=== PATIENT | female | born 1965 | race Caucasian/White ===

== ENCOUNTER 2024-10-19 18:18 | Observation (INO) ==
[2024-10-19] MEDS: LACTATED RINGER'S 1,000 ML IV ONE (18:57)
[2024-10-19] MEDS ORDERED: LACTATED RINGER'S 1,000 ML ONE (18:57)
[2024-10-19 19:07] LABS: Basophils #(Absolute) Auto 0.1 (0.0-0.1); Basophils%(Percent) Auto 0.6 (0.1-0.85); Eosinophils#(Absolute)Auto 0.1 (0.0-0.2); Eosinophils%(Percent) Auto 0.7 % (0.4-2.8); Granulocytes % - Auto 76.8 % (47.8-71.3); Granulocytes#(Absolute)- Auto 7.1 (2.3-6.0); Mean Corpuscular Volume 76.5 fl (81.0-93.7); Monocytes #(Absolute)- Auto 0.5 (1.1-3.1); Monocytes %(Percent)- Auto 5.1 % (3.6-9.8); Platelet Count 211 K/uL (152-353); White Blood Count 9.3 K/uL (4.3-9.3)
[2024-10-19 19:12] LABS: Potassium 3.6 mmol/L (3.6-5.2)
[2024-10-19 19:14] LABS: Urine Appearance CLEAR (CLEAR); Urine Blood NEGATIVE (NEG - TRACE); Urine Color YELLOW (STRAW/YELL.); Urine Urobilinogen Normal (NORMAL)
[2024-10-19 19:23] LABS: Base Excess ABG -5.6 mmo1/L (-2-2); Oxygen Saturation ABG 95 % (92-100); PCO2 ABG 39 mmHg (35-45); PO2 ABG 83 mmHg (60-100); pH ABG 7.32 (7.35-7.45)
[2024-10-19] MEDS ORDERED: MORPHINE SULFATE 4 MG/ML CARTRIDGE IV PRN (22:45)
[2024-10-19] MEDS ORDERED: ACETAMINOPHEN 500 MG TABLET PO PRN (22:45)
--- NOTE | 2024-10-19 22:50 | Emergency Department Note ---
HPI - Nausea/Vomiting/Diarrhea General Chief complaint: Nausea/Vomiting/Diarrhea Stated complaint: Vomiting Time Seen by Provider: 10/19/24 18:43 Source: EMS Mode of arrival: ambulance History of Present Illness HPI Narrative: 59 yo female is reported to have been transported to the ED due to a low blood sugar reading on her dexacom, and persistent nausea, vomiting, and diarrhea per EMS. Patient was given Phenergan prior to arrival via EMS and appears extremely lethargic, is unable to answer questions, and is completely altered upon entry to room Secondary to patient's history I will request an immediate CT scan of her head without contrast. Related Data Previous Rx's Medication Instructions Recorded dicyclomine 20 mg tablet 20 mg PO QID PRN abdominal p ain 12/04/23 #20 tabs metronidazole 250 mg tablet 250 mg PO TID Giardia 7 da ys #21 12/04/23 tabs ondansetron 4 mg disintegrating 4 mg PO Q6H PRN nausea and 12/04/23 tablet vomiting #15 tabs Allergies Allergy/AdvReac Type Severity Reaction Status Date / Time No Known Drug Allergies Allergy Verified 10/19/24 18:26 Review of Systems Status of ROS unobtainable due to mental status (patient is currently unable to provide the [employer] with any useful information. ) PFSH PFSH Medical History CAD (coronary artery disease) GERD (gastroesophageal reflux disease) CHF (congestive heart failure) Stroke Hypocholesterolemia Diabetes mellitus Atrial fibrillation Hypertension Surgical History Hx of hernia repair History of hysterectomy Hx of appendectomy Hx of cholecystectomy Social History Smoking status: never smoker Within the past year, how often did you have a drink containing alcohol: never Within the past year, how often did you have six or more drinks on one occasion: never Score interpretation: A score less than 3 is consistent with normal alcohol consumption. Non-prescribed substance use: denies use Exam Exam: 59 yo female presents well nourished but poorly hydrated with poor skin turgor and an extremely dry oral cavity. Patient rouses to deep stimulation, however, is unable to answer question or purposefully move extremities. Constitutional: no apparent distress Vital Signs - 24 hr 10/19/24 18:22 Temperature 97.8 F Pulse Rate 75 Respiratory Rate 20 Blood Pressure 128/64 Pulse Oximetry 97 Oxygen Delivery Me thod Room Air Extremely drowsy, unsure if secondary to medication admission prior to arrival or a CVA HENMT: normocephalic, head/scalp atraumatic, hearing grossly normal bilaterally, external ears normal, TMs normal bilaterally and external nose normal extremely dry oral mucous membranes Eyes: PERRL Neck/C-Spine: visual inspection normal, trachea midline and cervical full ROM noted Lymph: no lymphadenopathy noted Chest: inspection of chest normal Respiratory: breath sounds equal bilaterally, normal respiratory effort, clear to auscultation bilaterally, no wheezes and no rales Cardiovascular: normal heart rate noted, regular rhythm noted, no gallop, no rub, no murmur and no JVD Gastrointestinal: abdomen normal to inspection, nontender to palpation, nontender to percussion and nondistended hyperactive bowel sounds, Genitourinary: no CVA tenderness and bladder normal to palpation Back/Pelvis: spine normal to inspection Extremities: normal to inspection patient is unable to provide purposeful movement when requested. Neurology: drowsy, arousable to deep stim, Skin: skin color normal Course Course Hospital Course: [facility] ekg cxr CT scan head CTA of head/neck IV fluids IV medications Reevaluation(s) Reevaluation #1: patient has become much more alert post straight cath for urine per nursing staff. Patient is able to converse with provider and answer simple questions. No acute signs or symptoms of CVA at this time. Time: 20:00 Reevaluation #2: I have explained the CT scan findings and discussed them with the patient instructing her we will need to do CTA of the head and neck to rule out LVO, and will most likely admit her to the floor for observation, monitoring, and more IV fluids tonight, and a follow up MRI tomorrow. Time: 21:00 Vital Signs Vital signs: Vital Signs Temperature 97.8 F 10/19/24 18:22 Pulse Rate 75 10/19/24 18:22 Respiratory Rate 20 10/19/24 18:22 Blood Pressure 128/64 10/19/24 18:22 Pulse Oximetry 97 10/19/24 18:22 Oxygen Delivery Method Room Air 10/19/24 18:22 Temperature 97.8 F 10/19/24 18:22 Pulse Rate 75 10/19/24 18:22 Respiratory Rate 20 10/19/24 18:22 Blood Pressure 128/64 10/19/24 18:22 Pulse Oximetry 97 10/19/24 18:22 Oxygen Delivery Method Room Air 10/19/24 18:22 Discharge Plan Discharge Patient Disposition: Admitted As Observation Condition: Stable Clinical Impression: Gastroenteritis, Acute alteration in mental status, Hypoglycemia, Carotid artery stenosis Time of Disposition: 22:45 Critical Care Time Critical Care Time Total Critical Care Time: 120
[2024-10-19] MEDS: ONDANSETRON HCL/PF 4 MG/2 ML VIAL INJ PRN (23:38)
[2024-10-19] MEDS: 0.9 % SODIUM CHLORIDE 1000 ML 1,000 ML IV SCH (23:38)
[2024-10-20 05:15] LABS: Basophils%(Percent) Auto 0.3 (0.1-0.85); Eosinophils#(Absolute)Auto 0.1 (0.0-0.2); Eosinophils%(Percent) Auto 1.1 % (0.4-2.8); Granulocytes % - Auto 56.1 % (47.8-71.3); Mean Corpuscular Volume 76.1 fl (81.0-93.7); Monocytes #(Absolute)- Auto 0.5 (1.1-3.1); Monocytes %(Percent)- Auto 7.6 % (3.6-9.8); Platelet Count 217 K/uL (152-353); White Blood Count 7.1 K/uL (4.3-9.3)
[2024-10-20] MEDS: IBUPROFEN 800 MG TABLET PO PRN (05:37)
[2024-10-20 05:41] LABS: Potassium 3.4 mmol/L (3.6-5.2)
[2024-10-20] MEDS ORDERED: POTASSIUM CHLORIDE 20 MEQ TAB.ER.PRT PO ONE (09:00)
[2024-10-20] MEDS: PANTOPRAZOLE SODIUM 40 MG TABLET.DR PO SCH (09:40)
[2024-10-20] MEDS: POTASSIUM CHLORIDE 20 MEQ TAB.ER.PRT PO ONE (09:40)
--- NOTE | 2024-10-20 11:48 | Short Stay Summary ---
H&P: HPI History of Present Illness Chief complaint: AMS, hypoglycemic episode, nausea, vomiting, diarr Narrative: 59 yo female is reported to have been transported to the ED due to a low blood sugar reading on her dexacom, and persistent nausea, vomiting, and diarrhea per EMS. Patient was given Phenergan prior to arrival via EMS and appears extremely lethargic, is unable to answer questions, and is completely altered upon entry to room Secondary to patient's history I will request an immediate CT scan of he r head without contrast. Patient more alert on exam today and interview is able to say that she has currently lost 80 pounds since she started the Mounjaro which she takes sporadically last time she took it was last week when she was increased to 10 mg. Patient states she has passed out last Thursday has almost fallen or fallen several times since then and this morning when she has not been able to eat and drink for the last 2 days she continued take her glipizide because her son does her medicine boxes and she is not told him about the poor eating and the nausea vomiting. No further nausea or vomiting or diarrhea since she has reached the floor in the last 12 hours. Left sided weakness upper and lower and learning to walk again and working on her Memory. 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 ) Constitutional Reports: change in weight (LOST 80 POUNDS), fatigue and malaise; Denies: fever or chills Eyes Denies: change in vision, blurry vision, eye discomfort or eye discharge Ears, nose, mouth, and throat Reports: throat pain; Denies: neck pain, throat swelling, difficulty swallowing, hoarseness, swelling of lips/tongue, ear pain or nasal congestion Cardiovascular Denies: chest pain, palpitations, edema, swelling of feet/ankles or lightheadedness Respiratory Reports: shortness of breath; Denies: cough, wheezing, stridor, pain on inspiration or chest congestion Gastrointestinal Reports: abdominal pain (epigastric, see HPI), nausea, vomiting, heartburn, diarrhea and belching (foul smelling, like rotten eggs); Denies: constipation, difficulty swallowing, painful bowel movements or blood in stool Genitourinary Reports: urinary incontinence; Denies: painful urination, urinary frequency, urinary urgency or blood in urine Musculoskeletal Reports: back pain; Denies: neck pain, extremity pain, extremity swelling or limited range of motion Integumentary/Breast Denies: rash, itching, redness, skin pain or changes in skin color Neurological Reports: headache; Denies: numbness in extremities, weakness in extremities, lack of coordination, dizziness, slurred speech or difficulty communicating thoughts Psychiatric Reports: mood swings, irritability and memory loss; Denies: anxiety, panic attacks, change in sleep pattern, hopelessness, loss of interest, paranoia or difficulty concentrating Endocrine Reports: fatigue; Denies: excessive urination, excessive thirst, cold intolerance or excessive sweating Hematologic/Lymphatic Denies: easy bruising, easy bleeding or enlarged lymph nodes Allergic/Immunologic Denies: hives, throat swelling, tongue swelling or facial swelling PFSH [facility] Medical History (Updated 10/20/24 @ 11:56 by Kenyatta Best DO) Hyperbilirubinemia Fatty liver CAD (coronary artery disease) GERD (gastroesophageal reflux disease) CHF (congestive heart failure) Stroke Hypocholesterolemia Atrial fibrillation Hypertension Surgical History Hx of hernia repair History of hysterectomy Hx of appendectomy Hx of cholecystectomy Social History Smoking status: never smoker Within the past year, how often did you have a drink containing alcohol: never Within the past year, how often did you have six or more drinks on one occasion: never Score interpretation: A score less than 3 is consistent with normal alcohol consumption. Non-prescribed substance use: denies use Problems where you live: no known problems Highest level of school completed/degree received: high school Feel stressed/tense/nervous/anxious/difficulty sleeping: not at all (trust in the lord) Due to disability, difficulty making decisions: No Meds Home Medications and Allergies Home Medications Medication Instructions Recorded Confirmed Type dicyclomine 20 mg tablet 20 mg PO QID PRN abdominal p ain 12/04/23 10/20/24 Rx #20 tabs ondansetron 4 mg disintegrating 4 mg PO Q6H PRN nausea and 12/04/23 10/20/24 Rx tablet vomiting #15 tabs alprazolam 0.25 mg tablet 0.25 mg PO TID PRN anxiety 0 10/20/24 10/20/24 History apixaban 5 mg tablet (Eliquis) 5 mg PO BID 10/20/24 History atorvastatin 80 mg tablet 80 mg PO BEDTIME 10/20/24 History blood-glucose sensor (FreeStyle 10/20/24 10/20/24 His [employer] Jose 3 Plus Sensor device) dapagliflozin propanediol 10 mg 10 mg PO DAILY 5 10/20/24 History tablet duloxetine 60 mg capsule,delayed 60 mg PO DAILY 10/20/24 History release furosemide 40 mg tablet 40 mg PO DAILY PRN edema 05/0410/20/24 History gabapentin 600 mg tablet 600 mg PO BEDTIME 10/20/24 0 10/20/24 History pantoprazole 40 mg tablet,delayed 40 mg PO QAM 5 10/20/24 History release potassium chloride 20 mEq 20 meq PO DAILY PRN hypokale mely 10/20/24 10/20/24 History tablet,extended release(part/cryst) ranolazine 1,000 mg 1,000 mg PO Q12H 10/20/24 History tablet,extended release,12 hr tramadol 50 mg tablet 50 mg PO Q12H PRN pain 10/2010/20/24 History Allergies Allergy/AdvReac Type Severity Reaction Status Date / Time No Known Drug Allergies Allergy Verified 10/19/24 18:26 Exam Constitutional: abnormal general appearance (disheveled) and (chronically ill), no apparent distress, abnormal body habitus (obese) and limitations noted (physical limitations) (left sided weakness) Vital Signs - 24 hr 10/19/24 18:22 10/19/24 19:20 10/19/24 20:20 Temperature 97.8 F Pulse Rate 75 77 75 Pulse Rate [Bilate ral] Respiratory Rate 20 17 16 Blood Pressure 128/64 142/64 142/73 Blood Pressure [Ri ght Arm] Pulse Oximetry 97 97 96 Oxygen Delivery Me thod Room Air Room Air Room Air 10/19/24 22:20 10/19/24 22:55 10/19/24 23:05 Temperature 97.8 F Pulse Rate 72 72 Pulse Rate [Bilate ral] Respiratory Rate 17 17 Blood Pressure 147/71 147/71 Blood Pressure [Ri ght Arm] Pulse Oximetry 97 97 Oxygen Delivery Me thod Room Air 10/19/24 23:48 10/20/24 03:40 10/20/24 08:00 Temperature 97.7 F 97.9 F 98.1 F Pulse Rate Pulse Rate [Bilate ral] 82 73 81 Respiratory Rate 19 18 19 Blood Pressure Blood Pressure [Ri ght Arm] 110/61 105/53 93/45 Pulse Oximetry 99 98 95 Oxygen Delivery Me thod Room Air Room Air Room Air HENMT: normocephalic, head/scalp atraumatic, hearing grossly normal bilaterally, external ears normal, TMs abnormal and external nose normal extremely dry oral mucous membranes Eyes: PERRL, EOMs intact bilaterally, conjunctivae normal, scleral icterus noted, papilledema noted and periorbital findings normal Neck/C-Spine: visual inspection normal, trachea midline and cervical full ROM noted Lymph: no lymphadenopathy noted and no lymphedema noted Chest: inspection of chest normal and palpation of chest normal Respiratory: breath sounds unequal, normal respiratory effort, clear to auscultation bilaterally, no wheezes and no rales Cardiovascular: normal heart rate noted, regular rhythm noted, no gallop, no rub, no murmur and no JVD low BP Gastrointestinal: abdomen abnormal to inspection, abdomen soft to palpation, nontender to palpation, nontender to percussion, nondistended, abnormal bowel sounds noted (hypoactive bowel sounds), no masses, no pulsatile mass and no ascites hyperactive bowel sounds, Genitourinary: no CVA tenderness, bladder normal to palpation and external appearance normal Back/Pelvis: spine abnormal to inspection, no thoracic spine tenderness, no lumbar spine tenderness, thoracic spine ROM abnormal and lumbar spine ROM abnormal Extremities: abnormal to inspection, normal to palpation, no tenderness, abnormal ROM noted, no joint enlargement and no deformity patient is unable to provide purposeful movement when requested. Neurology: repack room worker II-XII intact, no movement abnormality noted, focal motor deficit noted, sensory deficit noted, deep tendon reflexes as noted:, gait abnormality noted, speech normal, coordination normal, no pronator drift noted and GCS normal drowsy, arousable to deep stim, Psychiatry: Mental Status Exam documented within this Exam's Psych section mental status grossly normal, oriented x3, thought process abnormality noted, cooperative, affect normal, psychomotor activity normal and memory abnormal Feel stressed/tense/nervous/anxious/difficulty sleeping: not at all (trust in the lord) Due to disability, difficulty making decisions: No Skin: skin color abnormal, no rash, no lesions, ecchymosis noted, no wounds, no lacerations, skin turgor abnormal Reports (tenting), no jaundice, no petechiae, no mottling, nails abnormality noted and no alopecia Assessment and Plan Assessment and Plan (1) Hypoglycemia associated with type 2 diabetes mellitus: Code(s): E11.649 - Type 2 diabetes mellitus with hypoglycemia without coma (2) CVA, old, ataxia: Code(s): I69.993 - Ataxia following unspecified cerebrovascular disease (3) Carotid stenosis, left: Code(s): I65.22 - Occlusion and stenosis of left carotid artery (4) Vertebrobasilar artery stenosis: Code(s): I65.1 - Occlusion and stenosis of basilar artery; I65.09 - Occlusion and stenosis of unspecified vertebral artery (5) GERD (gastroesophageal reflux disease): Qualifiers: Esophagitis presence: without esophagitis Qualified Code(s): K21.9 - Gastro-esophageal reflux disease without esophagitis Code(s): K21.9 - Gastro-esophageal reflux disease without esophagitis (6) CHF (congestive heart failure): Qualifiers: Heart failure type: combined systolic and diastolic Heart failure chronicity: chronic Qualified Code(s): I50.42 - Chronic combined systolic (congestive) and diastolic (congestive) heart failure Code(s): I50.9 - Heart failure, unspecified (7) Hypocholesterolemia: Code(s): E78.6 - Lipoprotein deficiency (8) Atrial fibrillation: Qualifiers: Atrial fibrillation type: paroxysmal Qualified Code(s): I48.0 - Paroxysmal atrial fibrillation Code(s): I48.91 - Unspecified atrial fibrillation (9) Hypertension: Qualifiers: Hypertension type: primary hypertension Qualified Code(s): I10 - Essential (primary) hypertension Code(s): I10 - Essential (primary) hypertension (10) Diabetes type 2, controlled: Qualifiers: 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 insulin use: with halfway use Diabetes mellitus complication status: with neurologic complications Diabetes mellitus complication detail: with polyneuropathy Qualified Code(s): E11.42 - Type 2 diabetes mellitus with diabetic polyneuropathy; Z79.4 - marine oil terminal superintendent (current) use of insulin Code(s): E11.9 - Type 2 diabetes mellitus without complications (11) Fatty liver: Code(s): K76.0 - Fatty (change of) liver, not elsewhere classified (12) Hyperbilirubinemia: Code(s): E80.6 - Other disorders of bilirubin metabolism (13) Acute dehydration: Code(s): E86.0 - Dehydration Plan IV hydration of normal saline at 125 an hour monitor blood sugars AC and at bedtime and as needed blood sugar monitoring with sliding scale insulin as needed Cardiac monitoring See if patient tolerates food and then add medications orally as needed Follow-up with your PCP to ensure GI medicine and vascular surgery and further testing for the carotid and vertebral stenosis is followed up on with her PCP Replace electrolytes as warranted Results Labs Labs: CBC 10/19/24 10/20/24 Range/Units 18:44 05:10 WBC 9.3 7.1 (4.3-9.3) K/uL RBC 5.5 5.1 (4.00-5.50) M/uL Hgb 13.5 12.8 (12.5-15.8) gm/dL Hct 42.0 39.0 (35.9-46.7) % Plt Count 211 217 (152-353) K/uL Gran % 76.8 H 56.1 (47.8-71.3) % Lymph % (Auto) 16.8 L 34.9 (20.0-43.0) % [place] % (Auto) 5.1 7.6 (3.6-9.8) % Eos % (Auto) 0.7 1.1 (0.4-2.8) % Baso % (Auto) 0.6 0.3 (0.1-0.85) Lymph # (Auto) 1.6 2.5 (1.1-3.1) [place] # (Auto) 0.5 L 0.5 L (1.1-3.1) Eos # (Auto) 0.1 0.1 (0.0-0.2) Baso # (Auto) 0.1 0.0 (0.0-0.1) Absolute Gran (auto) 7.1 H 4.0 (2.3-6.0) CMP 10/19/24 10/20/24 18:50 05:10 Sodium 138 140 Potassium 3.6 3.4 L Chloride 104.0 108.0 H Carbon Dioxide 25 24 BUN 17 12 Creatinine 0.9 0.7 Glucose 125 H 79 Calcium 8.3 L 8.0 L Liver Function 10/19/24 Range/Units 18:50 Total Bilirubin 1.99 H (0.0-1.0) mg/dL AST 15 (15-37) U/L ALT 21 L (30-65) U/L Alkaline Phosphatase 94 (50-136) U/L Albumin 3.4 (3.4-5.0) g/dL Urine 10/19/24 18:50 Urine Color Yellow Urine Appearance Clear Ur Specific [place] 1.030 Urine Protein Negative Urine Glucose (UA) 4+ ABG ABG results: 10/19/24 19:00 ABG pH 7.32 L ABG pCO2 39 ABG pO2 101 ABG HCO3 20.1 L ABG Total CO2 21.3 ABG O2 Saturation 95 ABG Base Excess -5.6 L Attestation: I have reviewed the pertinent ABG results. Pulse Oximetry Attestation: I have reviewed the pertinent pulse oximetry results. ECG Attestation: I have reviewed the pertinent ECG results. Prior ECG tracings: available for review Imaging Imaging ordered: Chest x-ray, CT scan - head and other (CTA neck) Attestation: I have reviewed the pertinent imaging results. Radiologist's impression: CT head from October 19, 2024 TECHNIQUE: Axial CT angiography of the head/neck with intravenous contrast. Coronal, sagittal and MIP and/or 3D reconstructed images were created for further characterization by the technologist. Noncontrast head CT was provided for further characterization. Radiation dose: 2805.6 mGy-cm total DLP FINDINGS: HEAD: Anterior Circulation: Right internal carotid artery: No clinically significant stenosis, occlusion or aneurysm. Right middle cerebral artery: No clinically significant stenosis, occlusion or aneurysm. Right anterior cerebral artery: No clinically significant stenosis, occlusion or aneurysm. Left internal carotid artery: No clinically significant stenosis, occlusion or aneurysm. Left middle cerebral artery: No clinically significant stenosis, occlusion or aneurysm. Left anterior cerebral artery: No clinically significant stenosis, occlusion or aneurysm. Posterior Circulation: Right vertebral artery: No clinically significant stenosis, occlusion or aneurysm. Left vertebral artery: No clinically significant stenosis, occlusion or aneurysm. Basilar artery: No clinically significant stenosis, occlusion or aneurysm. Right posterior cerebral artery: No clinically significant stenosis, occlusion or aneurysm. Left posterior cerebral artery: No clinically significant stenosis, occlusion or aneurysm. Venous: No filling defects in the dural venous sinuses. Brain: No abnormal areas of acute attenuation in the brain parenchyma. Cerebral ventricles: No ventriculomegaly. Bones/joints: No acute osseous abnormality. Soft tissues: Unremarkable. NECK: Right common carotid artery: No clinically significant stenosis, occlusion or dissection. Right internal carotid artery: No clinically significant stenosis of the extracranial segment. No dissection or occlusion. Right external carotid artery: No occlusion or clinically significant stenosis of the origin. Right vertebral artery: No clinically significant stenosis. No dissection or occlusion. Left common carotid artery: No clinically significant stenosis, occlusion or dissection. Left internal carotid artery: Short-segment 60% stenosis in the proximal left internal carotid artery secondary to calcified atherosclerotic plaque over a 5 mm segment. Left external carotid artery: No occlusion or clinically significant stenosis of the origin. Left vertebral artery: No clinically significant stenosis. No dissection or occlusion. Bones/joints: No acute osseous abnormality. Soft tissues: Unremarkable. Lungs: Imaged portion of the lungs are unremarkable. IMPRESSION: 1. No acute intracranial abnormality identified, specifically, no clinically significant stenosis, occlusion or aneurysm identified involving the intracranial arterial structures. 2. No evidence of dural venous thrombosis. 3. 60% stenosis in the proximal left internal carotid artery secondary to calcified atherosclerotic plaque over a 5 mm segment. 4. No clinically significant stenosis, occlusion or dissection involving the remaining arterial structures of the neck. EXAM: HEAD CT WITHOUT INTRAVENOUS CONTRAST HISTORY: Altered mental status. TECHNIQUE: Spiral axial CT images are obtained through the brain without the administration of intravenous contrast. Additional sagittal and coronal reformatted images are reconstructed. COMPARISON: None available. FINDINGS: The centrum semiovale, basal ganglia, cerebellum, and brainstem are grossly unremarkable for a noncontrast CT scan. vertebral arteries, with suggestion of severe (greater than 70%; presumed hemodynamically significant, bilateral vertebral artery stenoses) seen. Consider follow-up MRA as clinically warranted. There is no acute intracranial hemorrhage, discernible acute infarction, mass lesion, midline shift, or hydrocephalus seen. No extra-axial mass or abnormal fluid collection is seen. Nonspecific pineal gland calcification is seen. The calvarium is intact. The partially imaged paranasal sinuses, middle ear cavities, and mastoid air cells are clear. IMPRESSION: 1. No intracranial hemorrhage, discernible acute infarction, mass lesions, midline shift, mass effect or hydrocephalus seen. 2. Severe atherosclerosis of the intracranial ICAs and vertebral arteries, with suggestion of severe (greater than 70%; presumed hemodynamically significant, bilateral vertebral artery stenoses) seen. 3. Consider follow-up evaluation with MRI/MRA for further assessment as clinically warranted. [place] [id number] XRay Report Signed Patient: Chelsie Coronado MR#: [id number] : 1965 Acct:[id number] Age/Sex: 59 / F ADM Date: 10/19/24 Loc: ED Attending Dr: Ordering Physician: Fahad Iraheta NP Date of Service: 10/19/24 Procedure(s): XR chest 1V Accession Number(s): [id number] cc: Fahad Iraheta NP~ EXAM: XR CHEST 1V HISTORY: AMS COMPARISON: December 04, 2023 TECHNIQUE: Chest radiographic imaging, AP portable projection, 1 image FINDINGS: No cardiomegaly. Implanted cardiac loop recorder in place. No focal airspace disease. No pleural effusion. No pneumothorax. No acute osseous abnormality. IMPRESSION: No imaging findings of acute cardiopulmonary disease. DS: Providers Provider Date of admission: 10/19/24 22:42 Primary care physician: Viv Moya NP Admitting clinician: Fahad Iraheta Attending physician on admission: Kenyatta Best Attending physician on discharge: Kenyatta Best Discharging clinician: Kenyatta Best Anticipated date of discharge: 10/20/24 DS: Summary Hospital Course Hospital Course: [facility] ekg cxr CT scan head CTA of head/neck IV fluids IV medications Patient did well and more alert this morning aspirated and has worn off and hypoglycemia has resolved although sugars are still in the 80s without any medication. Discussed in detail need for medication changes or decrease since she has lost all these much weight and she understands we will keep her blood sugar Cirilo she follows up with Viv tomorrow. Patient's potassium was 3.4 this morning tolerated replacement bili on admission was 1.99 has a history of being 1.62 and history of fatty liver has GI medicine doctor will make sure Viv knows that she needs to follow-up with them soon Status at Discharge Functional status at discharge: uses cane/walker Overall status at discharge: patient is back to baseline Time Spent with Patient Time attestation: Total time spent providing and/or coordinating discharge services: 64 Discharge Plan Discharge Disposition: Home, Self-Care Condition: Improved Discharge Medications: Continued ondansetron 4 mg tablet,disintegrating 4 mg PO Q6H PRN (Reason: nausea and vomiting) Qty: 15 0RF dicyclomine 20 mg tablet 20 mg PO QID PRN (Reason: abdominal pain) Qty: 20 0RF alprazolam 0.25 mg tablet 0.25 mg PO TID PRN (Reason: anxiety) Patient Comments: TAKE ONE TABLET BY MOUTH THREE TIMES DAILY NEEDED FOR ANXIETY Eliquis 5 mg tablet 5 mg PO BID Patient Comments: TAKE ONE TABLET BY MOUTH TWICE DAILY atorvastatin 80 mg tablet 80 mg PO BEDTIME Patient Comments: TAKE ONE TABLET BY MOUTH AT BEDTIME (DME) [employer] Jose 3 Plus Sensor Device MISCELLANEOUS Patient Comments: USE DIRECTED TO CHECK GLUCOSE EVERY 15 DAYS dapagliflozin propanediol 10 mg tablet 10 mg PO DAILY Patient Comments: TAKE ONE TABLET BY MOUTH DAILY duloxetine 60 mg capsule,delayed release(DR/EC) 60 mg PO DAILY Patient Comments: TAKE ONE CAPSULE BY MOUTH DAILY AT BEDTIME furosemide 40 mg tablet 40 mg PO DAILY PRN (Reason: edema) Patient Comments: TAKE ONE TABLET BY MOUTH DAILY gabapentin 600 mg tablet 600 mg PO BEDTIME Patient Comments: TAKE ONE TABLET BY MOUTH DAILY IN THE EVENING pantoprazole 40 mg tablet,delayed release (DR/EC) 40 mg PO QAM Patient Comments: TAKE ONE TABLET BY MOUTH DAILY potassium chloride 20 mEq tablet,ER particles/crystals 20 meq PO DAILY PRN (Reason: hypokalemia) Patient Comments: TAKE ONE TABLET BY MOUTH DAILY NEEDED with lasix Rx Instructions: only takes when taking lasix ranolazine 1,000 mg tablet extended release 12 hr 1,000 mg PO Q12H Patient Comments: TAKE ONE TABLET BY MOUTH TWICE DAILY tramadol 50 mg tablet 50 mg PO Q12H PRN (Reason: pain) Patient Comments: TAKE ONE TABLET BY MOUTH TWICE DAILY NEEDED Discontinued metronidazole 250 mg tablet 250 mg PO TID 7 Days Qty: 21 0RF carvedilol 12.5 mg tablet 12.5 mg PO BID Patient Comments: TAKE ONE TABLET BY MOUTH TWICE DAILY glipizide 10 mg tablet 10 mg PO BID Patient Comments: TAKE ONE TABLET BY MOUTH TWICE DAILY metoprolol succinate 200 mg tablet extended release 24 hr 200 mg PO DAILY PRN (Reason: hr) Patient Comments: TAKE ONE TABLET BY MOUTH DAILY Rx Instructions: takes when instructed by farmer tree fruit and nut crops Mounjaro 10 mg/0.5 mL pen injector 10 mg SUBCUT QWEEK Patient Comments: INJECT 1 PEN (10 MG) SUBCUTANEOUSLY ONCE A WEEK Discharge Orders: Discharge Order (Routine); Ordered 10/20/24 Ordered By: Kenyatta Best Activity: as per physical therapy Diet: diabetic diet and low fat, low cholesterol Activity Restrictions/Additional Instructions: Patient understands to order Mounjovanniro that she took last week of 10 mg increased dose then until she follows up with her PCP Follow-up Viv has an appointment in the a.m. to discuss further evaluation whether it be an MR a of the carotids and vertebrals are vascular surgeon which it sounds like she truly needs for further evaluation and surgery as warranted and patient can tolerate Increase water in her diet make sure she monitors blood sugars do not take the glipizide nor the Coreg until she follows up with the manage tomorrow to get further direction as with the drastic weight loss she probably needs decreased doses or changing medications. Her hemoglobin A1c when she started the Mounjaro was 13 on her last check about a month ago it was 5.7 per the patient. This along with her new episodes of hypoglycemia explained in detail the risk of sudden and issues with the hypoglycemia. Forms: Portal/Health Info Access Inst Follow-Ups: Viv Moya NP [Primary Care Provider, Medical]
[2024-10-20] MEDS ORDERED: APIXABAN 2.5 MG TABLET PO SCH ×2 (11:55→21:00)
[2024-10-20 12:25] VITALS: BP 100/60; PULSE 77; RESP 16; TEMP 98.2
== END 2024-10-20 13:43 | disposition home or self-care (01) ==
LOC: ED 18:18 → MS 18:18
PROVIDERS: ADMIT Nurse Practitioner Family; ATTEND Family Medicine
DX: Z79.899 Other long term (current) drug therapy; I65.09 Occlusion and stenosis of unspecified vertebral artery; E80.6 Other disorders of bilirubin metabolism; Z79.4 Long term (current) use of insulin; E78.00 Pure hypercholesterolemia, unspecified; I11.0 Hypertensive heart disease with heart failure; E11.42 Type 2 diabetes mellitus with diabetic polyneuropathy; E78.6 Lipoprotein deficiency; E11.649 Type 2 diabetes mellitus with hypoglycemia without coma; K76.0 Fatty (change of) liver, not elsewhere classified; I25.10 Atherosclerotic heart disease of native coronary artery without angina pectoris; Z79.01 Long term (current) use of anticoagulants; I65.1 Occlusion and stenosis of basilar artery; I65.22 Occlusion and stenosis of left carotid artery; I69.993 Ataxia following unspecified cerebrovascular disease; K21.9 Gastro-esophageal reflux disease without esophagitis; I48.0 Paroxysmal atrial fibrillation; Z79.84 Long term (current) use of oral hypoglycemic drugs; E86.0 Dehydration; I50.42 Chronic combined systolic (congestive) and diastolic (congestive) heart failure